=== PATIENT | male | born 1940 | race Caucasian/White ===

== ENCOUNTER 2022-05-02 14:55 | Inpatient (IN) | payer MEDICARE, SELFPAY ==
--- NOTE | ~2022-05-02 | CT_ITS ---
EXAMINATION: CT UE RT w con DATE: 05/03/2022 13:10 INDICATION: Right upper limb cat bite. TECHNIQUE: Computed tomography (CT) of the right upper limb was performed with 100 mL Omnipaque 350 i ntravenous contrast. Automated exposure control and iterative reconstruction technique were employed. The dose-length product was 651.08 mGy-cm. COMPARISON: Right hand radiographs 05/02/2022 FINDINGS: Bone alignment is normal. No fracture. There is a subchondral cyst in distal radius. 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 There is severe osteoarthritis o f some of the distal interphalangeal joints. There is soft tissue swelling of the hand and forearm. T here is a partial tear of the extensor tendon to fifth digit in the dorsum of the hand and wrist with fluid in the tear. IMPRESSION: 1. Partial tear of the extensor tendon of the fifth digit in the dorsum of the hand and wrist with fl uid in the tear. 2. No drainable abscess. Reviewed, dictated and finalized at location A. NEERING DIRECTOR IMPRESSION: 1. Partial tear of the extensor tendon of the fifth digit in the dorsum of the hand and wrist with fluid in the tear. 2. No drainable abscess.
--- NOTE | ~2022-05-02 | XR_ITS ---
EXAMINATION: XR hand RT min 3V INDICATION: Right hand pain and swelling TECHNIQUE: Three views of the right hand are obtained. COMPARISON: None available FINDINGS: There is marked soft tissue soft tissue swelling of the hand. No fracture is identified. Th ere is moderate osteoarthritis of multiple interphalangeal joints and at the triscaphe joint. Calcifi ed atherosclerosis is noted. IMPRESSION: 1. Marked soft tissue swelling of the hand without acute osseous abnormality. Reviewed, dictated and finalized at location F. MAKING MACHINE SETTER
[2022-05-02 15:48] VITALS: BP 129/61; PULSE 61; RESP 18; TEMP 36.7; O2SAT 97
--- NOTE | 2022-05-02 19:36 | ED.ANIMALBIT ---
HPI - Animal Bite General Chief Complaint: Animal Bite <Radha Greco PA-C - Last Filed: 05/03/22 04:19> Stated Complaint: cat bite <Radha Greco PA-C - Last Filed: 05/03/22 04:19> Time Seen by Provider: 05/02/22 19:19 <Radha Greco PA-C - Last Filed: 05/03/22 04:19> History of Present Illness HPI narrative: 82-year-old male without known medical history reports for evaluation after his cat bit his right hand 4 days ago. He is complaining of swelling, erythema, pain to his right dorsal hand and wrist that extends up into his forearm. Patient reports 3 days ago he was seen by his primary care provider for evaluation of the cat bite, started on Augmentin. He states he is here today because he is worried the infection is not going away. He reports he has taken Augmentin twice a day every day since prescribed 4 days ago, no missed doses. He reports that the swelling has not improved, however the erythema was extending to his elbow and is now down to his forearm. He denies fever, body aches, chills, nausea, vomiting. He states that his tetanus was updated by his primary care provider 4 days ago. He states this was his cat and the cat is up-to-date on rabies vaccines. Patient reports he has not concerned for rabies. Pt is right handed. <Radha Greco PA-C - Last Filed: 05/03/22 04:19> Related Data Home Medications: Home Medications Medication Instructions Recorded Confirmed [place] 3 Fish Oil 950 mg BYMOUTH HS 05/02/22 05/02/22 allopurinol 100 mg tablet 100 mg PO BID 05/02/22 05/02/22 clopidogrel 75 mg tablet 75 mg PO DAILY 05/02/22 05/02/22 colchicine 0.6 mg tablet 0.6 mg PO DAILY 05/02/22 05/02/22 geriatric multivitamin-min 1 tablet BYMOUTH DAILY 05/02/22 05/02/22 losartan 25 mg tablet 25 mg PO DAILY 05/02/22 05/02/22 rosuvastatin 10 mg tablet 10 mg PO HS 05/02/22 05/02/22 vitamin B complex 1 tablet PO DAILY 05/02/22 05/02/22 Nifediac CC 30 mg PO BID 05/03/22 05/03/22 <Radha Greco PA-C - Last Filed: 05/03/22 04:19> Allergies/Adverse Reactions: Allergies Allergy/AdvReac Type Severity Reaction Status Date / Time No Known Allergies Allergy Verified 02/27/20 10:34 <Radha Greco PA-C - Last Filed: 05/03/22 04:19> Review of Systems Review of Systems: CONSTITUTIONAL: Denies fever, chills EYES: Denies visual changes, redness, or discharge. ENT: Denies rhinorrhea, congestion, sore throat, or otalgia. CARDIOVASCULAR: Denies chest pain, palpitations, or edema. RESPIRATORY: Denies cough or dyspnea. GASTROINTESTINAL: Denies abdominal pain, nausea, vomiting, or diarrhea. GENITOURINARY: Denies dysuria or hematuria. SKIN: See HPI MUSCULOSKELETAL: Denies back pain, joint pain, or myalgia. NEUROLOGIC: Denies headache, numbness, dizziness, or weakness. PSYCHIATRIC: Denies anxiety or depression. 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
[2022-05-02 20:23] LABS: Basophils Percent Auto 0.7 % (0.2-1.2); Eosinophils Absolute Auto 0.2 K/mm3 (0-0.3); Eosinophils Percent Auto 2.5 % (0-4.4); Hematocrit 44.8 % (42.0-52.0); Hemoglobin 14.7 g/dL (14.0-18.0); Immature Granulocyte Absolute 0.01 K/mm3 (0.00-0.031); Immature Granulocyte Percent A 0.2 % (0-0.5); Lymphocytes Absolute Auto 1.56 K/mm3 (0.9-3.2); Mean Corpuscular HGB Conc 32.8 g/dl (32-36); Mean Corpuscular Hemoglobin 31.1 pg (26-34); Mean Corpuscular Volume 94.9 fl (80-100); Mean Platelet Volume 9.4 fl (7.4-10.4); Monocytes Absolute Auto 0.8 K/mm3 (0.1-0.6); Monocytes Percent Auto 12.8 % (2.6-8.5); Neutrophils Absolute Auto 3.5 K/mm3 (1.3-6.7); Neutrophils Percent Auto 57.8 % (45.5-73.1); Platelet Count Result 241 k/mm3 (150-375); Red Blood Count 4.72 M/mm3 (4.6-6.20); Red Cell Distribution Width 12.9 % (11.5-14.5)
[2022-05-02 20:36] LABS: Alanine Aminotransferase 23 U/L (6-50); Albumin Level 4.6 g/dL (3.5-5.1); Alkaline Phosphatase 72 U/L (38-126); Anion Gap 7 mmol/L (8-16); Aspartate Amino Transferase 27 U/L (17-59); Bilirubin,Total 0.5 mg/dL (0.2-1.3); Blood Urea Nitrogen 19 mg/dL (9-20); CRP 4.7 mg/dL (<1.0); Calcium 9.3 mg/dL (8.4-10.2); Carbon Dioxide 28 mmol/L (22-30); Chloride 104 mmol/L (98-107); Estimated Glomerular Filt Rate > 60; Glucose 96 mg/dL (65-110); Potassium 4.1 mmol/L (3.4-5.0); Sodium 139 mmol/L (137-145)
[2022-05-02] MEDS: AMPICILLIN SULB 3 GM/NS 100 ML 3 GM/100 ML VIAL IVPB (20:37)
[2022-05-02 21:26] VITALS: BP 168/54; PULSE 62; RESP 20; TEMP 36.8; O2SAT 100
[2022-05-02 21:46] LABS: Erythrocyte Sedimentation Rate 27 mm/hr (0-20)
--- NOTE | 2022-05-02 22:25 | ADMGEN ---
This patient, Candelario Snider Jr., was admitted to Medical Room 247-. Patient/family oriented to hospital policies and general routines including ID bracelet, bed and alarms, visiting hours, pain management, procedures, bathroom and other care routines, personal items, smoking policy, room service/diet, and visiting hours. Information on how to activate the Rapid Response Team has been discussed. Patient/Family are encouraged to report perceived risks to care and to ask questions if they do not understand what they are told or what they should do.
[2022-05-02 22:33] VITALS: PULSE 62; RESP 20; O2SAT 100
[2022-05-02 22:53] LABS: Basophils Absolute Auto 0.1 K/mm3 (0.0-0.1); Basophils Percent Auto 0.9 % (0.2-1.2); Eosinophils Absolute Auto 0.2 K/mm3 (0-0.3); Eosinophils Percent Auto 2.8 % (0-4.4); Hematocrit 43.3 % (42.0-52.0); Hemoglobin 14.2 g/dL (14.0-18.0); Immature Granulocyte Absolute 0.02 K/mm3 (0.00-0.031); Immature Granulocyte Percent A 0.4 % (0-0.5); Lymphocytes Absolute Auto 1.59 K/mm3 (0.9-3.2); Lymphocytes Percent Auto 27.9 % (18.3-44.2); Mean Corpuscular HGB Conc 32.8 g/dl (32-36); Mean Corpuscular Hemoglobin 31.3 pg (26-34); Mean Corpuscular Volume 95.4 fl (80-100); Mean Platelet Volume 9.4 fl (7.4-10.4); Monocytes Absolute Auto 0.7 K/mm3 (0.1-0.6); Monocytes Percent Auto 11.9 % (2.6-8.5); Neutrophils Absolute Auto 3.2 K/mm3 (1.3-6.7); Neutrophils Percent Auto 56.1 % (45.5-73.1); Platelet Count Result 232 k/mm3 (150-375); Red Blood Count 4.54 M/mm3 (4.6-6.20); White Blood Count 5.7 K/mm3 (4.5-10.0)
[2022-05-02 23:05] VITALS: BP 170/64; PULSE 61; RESP 18; TEMP 36.6; O2SAT 98; BMI 28.6
--- NOTE | 2022-05-03 00:44 | PM.IMHP ---
H&P: [facility] History of Present Illness Date/Time: 05/03/22 00:44 Chief Complaint: Cellulitis from cat bite Narrative: 82-year-old male with past medical history of essential hypertension, gout and coronary artery disease/peripheral artery disease who presented to the ER via private vehicle due to worsening cellulitis from a cat bite. The patient was bit on the by his cat that is just over a year old. He told me that he was trying to restrain the cat so that she quit being naughty. She bit him twice. The following day 04/28/2022 got a prescription for Augmentin. He has taken his medications as directed twice a day without missing any antibiotic doses. Despite this he has had increased swelling redness and warmth to his right hand with erythema now starting to spread up his forearm. He has been afebrile. He reports that any time he stands up suddenly he will developed more throbbing pain in his hand. The hand has been edematous since the day after he received the bite. He started having increasing erythema 2 or 3 days later. The erythema was starting to go up his forearm. He reports that his hand was so swollen that he could not make fist. He reports the pain for the most part is a 2-3/10 in intensity. It is also worse if he lets hand hanging has been trying to keep his hand elevated. He reports that the hand is been weak due to the swelling. He was trying to he states that he cannot straighten his fingers out and states that the pain is worse when he tries to straighten his fingers out. Especially the 3rd through 5th fingers. He reports that he had been soaking his hand daily and warm water and Epsom salts. After about 3 days of doing this he did note that the wound on his ulnar side of his wrist did open up but was not really draining anything. He denies any nausea or vomiting. He has not had any changes in appetite. He does have a history of coronary artery disease but denies any recent chest pain shortness but or palpitations. 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 He denies any sensation of incomplete bladder emptying. Review of Systems Review of Systems: 12 systems were reviewed with pertinent positives and negatives per HPI. Except as documented in the HPI, all other systems were reviewed and are negative. 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 He lives at home with his and is independent in activities of daily living. 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 He has 2 sons and 1 daughter who are all healthy. He used to drink alcohol on occasion but has not done so in many years. Code status: Full code (patient states he would not want to be on a ventilator long-term or to have a tracheostomy or feeding tube.) Surrogate decision maker: Smoking status: Never smoker Second hand tobacco smoke exposure: Yes (at work) Alcohol intake: former Alcohol use details: On occasion in in moderation. Substance use: never Substance use type: does not use Lack
[2022-05-03 04:00] VITALS: BP 150/54; PULSE 56; RESP 18; TEMP 36.7; O2SAT 97
[2022-05-03] MEDS: AMPICILLIN SULB 3 GM/NS 100 ML 3 GM/100 ML VIAL IVPB ×4 (04:10→20:22)
[2022-05-03 05:18] LABS: Hematocrit 41.1 % (42.0-52.0); Hemoglobin 13.7 g/dL (14.0-18.0); Mean Corpuscular HGB Conc 33.3 g/dl (32-36); Mean Corpuscular Hemoglobin 31.7 pg (26-34); Mean Corpuscular Volume 95.1 fl (80-100); Mean Platelet Volume 9.6 fl (7.4-10.4); Platelet Count Result 224 k/mm3 (150-375); Red Blood Count 4.32 M/mm3 (4.6-6.20); Red Cell Distribution Width 12.7 % (11.5-14.5)
[2022-05-03 08:00] VITALS: BP 161/57; PULSE 57; RESP 16; TEMP 36.6; O2SAT 96
[2022-05-03] MEDS: LOSARTAN POTASSIUM 25 MG TABLET PO (08:23)
[2022-05-03] MEDS: COLCHICINE 0.6 MG TABLET PO (08:23)
[2022-05-03] MEDS: NIFEdipine 30 MG TAB.ER.24 PO ×2 (08:23→17:01)
[2022-05-03] MEDS: allopurinoL 100 MG TABLET PO ×2 (08:23→17:01)
[2022-05-03] MEDS: CLOPIDOGREL BISULFATE 75 MG TABLET PO (08:24)
[2022-05-03] MEDS: VITAMIN B COMPLEX CAPSULE 1 CAP PO (08:24)
[2022-05-03] MEDS: ENOXAPARIN 40 MG/0.4 ML SYRINGE SUB-Q (08:24)
--- NOTE | 2022-05-03 11:56 | PM.IMPN ---
Progress Note: A&P Assessment and Plan (1) Cat bite: Qualifiers: Encounter type: sequela Qualified Code(s): W55.01XS - Bitten by cat, sequela Code(s): W55.01XA - Bitten by cat, initial encounter Status: Acute (2) Cellulitis: Qualifiers: Laterality: right Site of cellulitis: extremity Site of cellulitis of extremity: upper extremity Qualified Code(s): L03.113 - Cellulitis of right upper limb Code(s): L03.90 - Cellulitis, unspecified Status: Acute (3) Essential hypertension: Code(s): I10 - Essential (primary) hypertension Status: Acute Plan The patient is cellulitis associated with a cap bite that has failed conservative/outpatient antibiotic therapy. The patient has been admitted to the hospital for IV antibiotics. ER provider stated the patient's wrist and hand erythema has already improved after 1 dose of Unasyn. The patient does have marked edema to the hand with associated decreased range of motion. Given the location of the wound and decreased range of motion IM concern for possible underlying infection possible underlying tenosynovitis. Subsequently a will order CT of the right upper extremity from mid forearm through to the finger tips to rule out any underlying infection or abscess. Blood cultures have been obtained and are pending. Will repeat CBC with a.m. labs. The patient has known essential hypertension. It is unclear whether not patient received his evening antihypertensives. His blood pressures have been elevated to the 160-170 systolic since arrival to the medical floor. Will monitor blood pressures more closely with Q 4 hour vitals. Nursing staff is checking if the patient got his evening dose of meds and which formulation of nifedipine that he uses. If hypertension persists will add additional antihypertensives in the form of hydralazine 10 mg q.4 hours. Given the patient's history coronary artery disease I would like the patient's blood pressures to be optimized. Patient has been admitted as observation status. 05/03/2022 interval history: patient 82-year-old male with right hand cat bite developed cellulitis with edema and difficulty with a range of motion with his hand and wrist, patient was seen by his primary care it started the patient on Augmentin however redness and swelling was not improving and patient came to emergency department for further evaluation, patient was started on Unasyn, patient states the redness swelling as well as range of motion has improved, will continue the IV antibiotics for 72 hours reassess the patient and discharge Subjective Date/time seen: 05/03/22 11:56 Cellulitis from cat bite HPI-Narrative: 82-year-old male with past medical history of essential hypertension, gout and coronary artery disease/peripheral artery disease who presented to the ER via private vehicle due to worsening cellulitis from a cat bite.? The patient was bit on the by his cat that is just over a year old.? He told me that he was trying to restrain the cat so that she quit being naughty.? She bit him twice.? The following day 04/28/2022 got a prescription for Augmentin.? He has taken his medications as directed twice a day without missing any antibiotic doses.? Despite this he has had increased swelling redness and warmth to his right hand with erythema now starting to spread up his forearm.? He has been afebrile.? He reports that any time he stands up suddenly he will developed more throbbing pain in his hand.? The hand has been edematous since the day after he received the bite.? He started having increasing erythema 2 or 3 days later.? The erythema was starting to go up his forearm.? He reports that his hand was so swollen that he could not make fist.? He reports the pain for the most part is a 2-3/10 in intensity.? It is also worse if he lets hand hanging has been trying to keep his hand elevated.? He reports that the hand is been weak due to t
[2022-05-03 12:00] VITALS: BP 169/58; PULSE 57; RESP 18; TEMP 36.8; O2SAT 98
[2022-05-03] MEDS: MULTIVITAMINS /C LUTEIN (CENTRUM SILVER) TABLET *BKC 1 TAB BY MOUTH (15:34)
[2022-05-03 20:00] VITALS: BP 168/59; PULSE 61; RESP 18; TEMP 36.4; O2SAT 97
[2022-05-03] MEDS: OMEGA 3 POLYUNSAT FATTY ACIDS 1 GM CAP PO (20:22)
[2022-05-03] MEDS: ROSUVASTATIN 10 MG TABLET PO (20:22)
[2022-05-04] MEDS: AMPICILLIN SULB 3 GM/NS 100 ML 3 GM/100 ML VIAL IVPB ×4 (03:20→20:18)
[2022-05-04 04:00] VITALS: BP 148/65; PULSE 55; RESP 18; TEMP 36.6; O2SAT 95
[2022-05-04 05:16] LABS: Hematocrit 41.4 % (42.0-52.0); Hemoglobin 13.9 g/dL (14.0-18.0); Mean Corpuscular HGB Conc 33.6 g/dl (32-36); Mean Corpuscular Hemoglobin 31.6 pg (26-34); Mean Corpuscular Volume 94.1 fl (80-100); Mean Platelet Volume 9.4 fl (7.4-10.4); Platelet Count Result 228 k/mm3 (150-375); Red Cell Distribution Width 12.6 % (11.5-14.5); White Blood Count 5.9 K/mm3 (4.5-10.0)
[2022-05-04 05:28] LABS: Anion Gap 6 mmol/L (8-16); Blood Urea Nitrogen 18 mg/dL (9-20); Carbon Dioxide 29 mmol/L (22-30); Chloride 102 mmol/L (98-107); Estimated CRCL calculation 45 ml/min; Estimated Glomerular Filt Rate > 60; Glucose 91 mg/dL (65-110); Magnesium 2.1 mg/dL (1.6-2.3); Potassium 3.6 mmol/L (3.4-5.0); Sodium 137 mmol/L (137-145)
[2022-05-04 08:00] VITALS: BP 147/65; PULSE 63; RESP 16; TEMP 36.6; O2SAT 97
[2022-05-04] MEDS: ENOXAPARIN 40 MG/0.4 ML SYRINGE SUB-Q (09:03)
[2022-05-04] MEDS: allopurinoL 100 MG TABLET PO ×2 (09:03→16:39)
[2022-05-04] MEDS: NIFEdipine 30 MG TAB.ER.24 PO ×2 (09:03→16:39)
[2022-05-04] MEDS: CLOPIDOGREL BISULFATE 75 MG TABLET PO (09:03)
[2022-05-04] MEDS: LOSARTAN POTASSIUM 25 MG TABLET PO (09:03)
[2022-05-04] MEDS: VITAMIN B COMPLEX CAPSULE 1 CAP PO (09:03)
[2022-05-04] MEDS: COLCHICINE 0.6 MG TABLET PO (09:03)
[2022-05-04] MEDS: MULTIVITAMINS /C LUTEIN (CENTRUM SILVER) TABLET *BKC 1 TAB BY MOUTH (09:03)
[2022-05-04 09:31] VITALS: O2SAT 96
--- NOTE | 2022-05-04 11:28 | PM.IMPN ---
Progress Note: A&P Assessment and Plan (1) Cat bite: Qualifiers: Encounter type: sequela Qualified Code(s): W55.01XS - Bitten by cat, sequela Code(s): W55.01XA - Bitten by cat, initial encounter Status: Acute (2) Cellulitis: Qualifiers: Laterality: right Site of cellulitis: extremity Site of cellulitis of extremity: upper extremity Qualified Code(s): L03.113 - Cellulitis of right upper limb Code(s): L03.90 - Cellulitis, unspecified Status: Acute (3) Essential hypertension: Code(s): I10 - Essential (primary) hypertension Status: Acute Plan The patient is cellulitis associated with a cap bite that has failed conservative/outpatient antibiotic therapy. The patient has been admitted to the hospital for IV antibiotics. ER provider stated the patient's wrist and hand erythema has already improved after 1 dose of Unasyn. The patient does have marked edema to the hand with associated decreased range of motion. Given the location of the wound and decreased range of motion IM concern for possible underlying infection possible underlying tenosynovitis. Subsequently a will order CT of the right upper extremity from mid forearm through to the finger tips to rule out any underlying infection or abscess. Blood cultures have been obtained and are pending. Will repeat CBC with a.m. labs. The patient has known essential hypertension. It is unclear whether not patient received his evening antihypertensives. His blood pressures have been elevated to the 160-170 systolic since arrival to the medical floor. Will monitor blood pressures more closely with Q 4 hour vitals. Nursing staff is checking if the patient got his evening dose of meds and which formulation of nifedipine that he uses. If hypertension persists will add additional antihypertensives in the form of hydralazine 10 mg q.4 hours. Given the patient's history coronary artery disease I would like the patient's blood pressures to be optimized. Patient has been admitted as observation status. 05/04/2022 interval history: patient 82-year-old male with right hand cat bite developed cellulitis with edema and difficulty with a range of motion with his RT hand and wrist, patient was seen by his primary care was started the patient on Augmentin however redness and swelling was not improving and patient came to emergency department for further evaluation, patient was started on Unasyn, patient states the redness swelling as well as range of motion has improved, will continue the IV antibiotics for 72 hours reassess the patient tomorrow, and follow up blood culture, if stable, will discharge patient tomoorw, Subjective Date/time seen: 05/04/22 11:28 The patient is cellulitis associated with a cap bite that has failed conservative/outpatient antibiotic therapy. The patient has been admitted to the hospital for IV antibiotics. ER provider stated the patient's wrist and hand erythema has already improved after 1 dose of Unasyn. The patient does have marked edema to the hand with associated decreased range of motion. Given the location of the wound and decreased range of motion IM concern for possible underlying infection possible underlying tenosynovitis. Subsequently a will order CT of the right upper extremity from mid forearm through to the finger tips to rule out any underlying infection or abscess. Blood cultures have been obtained and are pending. Will repeat CBC with a.m. labs. The patient has known essential hypertension. It is unclear whether not patient received his evening antihypertensives. His blood pressures have been elevated to the 160-170 systolic since arrival to the medical floor. Will monitor blood pressures more closely with Q 4 hour vitals. Nursing staff is checking if the patient got his evening dose of meds and which formulation of nifedipine that he uses. If hypertension persists will add additional antihypert
[2022-05-04 11:45] VITALS: BP 141/59; PULSE 58; RESP 20; TEMP 36.4; O2SAT 96
[2022-05-04 15:40] VITALS: BP 143/52; PULSE 57; RESP 18; TEMP 36.8; O2SAT 95
[2022-05-04 20:00] VITALS: BP 151/57; PULSE 57; PULSE 60; RESP 16; RESP 18; TEMP 36.9; O2SAT 94; O2SAT 95
[2022-05-04] MEDS: ROSUVASTATIN 10 MG TABLET PO (20:18)
[2022-05-04] MEDS: OMEGA 3 POLYUNSAT FATTY ACIDS 1 GM CAP PO (20:18)
[2022-05-05 00:22] VITALS: BP 144/56; PULSE 61; RESP 18; TEMP 37.1; O2SAT 95
[2022-05-05] MEDS: AMPICILLIN SULB 3 GM/NS 100 ML 3 GM/100 ML VIAL IVPB ×2 (02:43→08:08)
[2022-05-05 04:35] VITALS: BP 144/54; PULSE 61; RESP 18; TEMP 36.9; O2SAT 95
[2022-05-05 05:21] LABS: Hematocrit 39.7 % (42.0-52.0); Hemoglobin 13.2 g/dL (14.0-18.0); Mean Corpuscular HGB Conc 33.2 g/dl (32-36); Mean Corpuscular Hemoglobin 30.7 pg (26-34); Mean Corpuscular Volume 92.3 fl (80-100); Mean Platelet Volume 9.2 fl (7.4-10.4); Platelet Count Result 225 k/mm3 (150-375); Red Cell Distribution Width 12.5 % (11.5-14.5); White Blood Count 5.4 K/mm3 (4.5-10.0)
[2022-05-05 05:34] LABS: Anion Gap 6 mmol/L (8-16); Blood Urea Nitrogen 18 mg/dL (9-20); Calcium 8.8 mg/dL (8.4-10.2); Carbon Dioxide 27 mmol/L (22-30); Chloride 103 mmol/L (98-107); Estimated CRCL calculation 42 ml/min; Estimated Glomerular Filt Rate > 60; Glucose 85 mg/dL (65-110); Magnesium 2.1 mg/dL (1.6-2.3); Potassium 3.8 mmol/L (3.4-5.0); Sodium 136 mmol/L (137-145)
[2022-05-05] MEDS: NIFEdipine 30 MG TAB.ER.24 PO (08:02)
[2022-05-05] MEDS: VITAMIN B COMPLEX CAPSULE 1 CAP PO (08:02)
[2022-05-05] MEDS: CLOPIDOGREL BISULFATE 75 MG TABLET PO (08:03)
[2022-05-05] MEDS: ENOXAPARIN 40 MG/0.4 ML SYRINGE SUB-Q (08:03)
[2022-05-05] MEDS: COLCHICINE 0.6 MG TABLET PO (08:03)
[2022-05-05] MEDS: LOSARTAN POTASSIUM 25 MG TABLET PO (08:03)
[2022-05-05] MEDS: MULTIVITAMINS /C LUTEIN (CENTRUM SILVER) TABLET *BKC 1 TAB BY MOUTH (08:03)
[2022-05-05] MEDS: allopurinoL 100 MG TABLET PO (08:03)
--- NOTE | 2022-05-05 10:21 | PM.DS ---
DS: Admitting Diagnosis Discharge Date 05/05/2022 Admitting Diagnosis Cellulitis from cat bite DS: Discharge Diagnosis Discharge Diagnosis (1) Cat bite: Qualifiers: Encounter type: sequela Qualified Code(s): W55.01XS - Bitten by cat, sequela Code(s): W55.01XA - Bitten by cat, initial encounter Status: Acute (2) Cellulitis: Qualifiers: Laterality: right Site of cellulitis: extremity Site of cellulitis of extremity: upper extremity Qualified Code(s): L03.113 - Cellulitis of right upper limb Code(s): L03.90 - Cellulitis, unspecified Status: Acute (3) Essential hypertension: Code(s): I10 - Essential (primary) hypertension Status: Acute Plan The patient is cellulitis associated with a cap bite that has failed conservative/outpatient antibiotic therapy. The patient has been admitted to the hospital for IV antibiotics. ER provider stated the patient's wrist and hand erythema has already improved after 1 dose of Unasyn. The patient does have marked edema to the hand with associated decreased range of motion. Given the location of the wound and decreased range of motion IM concern for possible underlying infection possible underlying tenosynovitis. Subsequently a will order CT of the right upper extremity from mid forearm through to the finger tips to rule out any underlying infection or abscess. Blood cultures have been obtained and are pending. Will repeat CBC with a.m. labs. The patient has known essential hypertension. It is unclear whether not patient received his evening antihypertensives. His blood pressures have been elevated to the 160-170 systolic since arrival to the medical floor. Will monitor blood pressures more closely with Q 4 hour vitals. Nursing staff is checking if the patient got his evening dose of meds and which formulation of nifedipine that he uses. If hypertension persists will add additional antihypertensives in the form of hydralazine 10 mg q.4 hours. Given the patient's history coronary artery disease I would like the patient's blood pressures to be optimized. Patient has been admitted as observation status. 05/04/2022 interval history: patient 82-year-old male with right hand cat bite developed cellulitis with edema and difficulty with a range of motion with his RT hand and wrist, patient was seen by his primary care was started the patient on Augmentin however redness and swelling was not improving and patient came to emergency department for further evaluation, patient was started on Unasyn, patient states the redness swelling as well as range of motion has improved, will continue the IV antibiotics for 72 hours reassess the patient tomorrow, and follow up blood culture, if stable, will discharge patient TEA slade: Summary Hospital Course Reason for hospitalization: Cellulitis from cat bite Narrative: 82-year-old male with past medical history of essential hypertension, gout and coronary artery disease/peripheral artery disease who presented to the ER via private vehicle due to worsening cellulitis from a cat bite.? The patient was bit on the by his cat that is just over a year old.? He told me that he was trying to restrain the cat so that she quit being naughty.? She bit him twice.? The following day 04/28/2022 got a prescription for Augmentin.? He has taken his medications as directed twice a day without missing any antibiotic doses.? Despite this he has had increased swelling redness and warmth to his right hand with erythema now starting to spread up his forearm.? He has been afebrile.? He reports that any time he stands up suddenly he will developed more throbbing pain in his hand.? The hand has been edematous since the day after he received the bite.? He started having increasing erythema 2 or 3 days later.? The erythema was starting to go up his forearm.? He reports that his hand was so swollen that he could not make fist.? He repor
[2022-05-05 10:44] VITALS: BP 128/51; PULSE 64; RESP 18; TEMP 36.2; O2SAT 97
== END 2022-05-05 12:10 | disposition home or self-care (01) | DRG 603 ==
LOC: ANHED 21:46 → ANH2MED 22:08
PROVIDERS: Admitting Provider Internal Medicine; Emergency Provider Physician Assistant; PCP Internal Medicine; Visit Provider Family Medicine
DX: L03.113 Cellulitis of right upper limb (principal); I10 Essential (primary) hypertension; W55.01XA Bitten by cat, initial encounter
CPT/HCPCS: 36415; 73130; 73201; 80048; 80053; 83735; 85025; 85027; 85652; 86140; 87040; 96365; 96366; 96372; 99285; A9270; G0378; J0295; J1650; Q9967

== ENCOUNTER 2022-08-23 06:04 | Emergency (ER) | payer MEDICARE, SELFPAY ==
[2022-08-23 06:09] VITALS: BP 144/46; PULSE 73; RESP 18; TEMP 36.5; O2SAT 95
--- NOTE | 2022-08-23 06:54 | ED.GENADULT ---
HPI - General Adult General Chief complaint: Urogenital-Male <Dao Cooper MD - Last Filed: 08/23/22 07:05> Stated complaint: Urinary retention <Dao Cooper MD - Last Filed: 08/23/22 07:05> Time Seen by Provider: 08/23/22 06:15 <Dao Cooper MD - Last Filed: 08/23/22 07:05> History of Present Illness HPI narrative: 82-year-old male presented the emergency department for evaluation of urinary urgency. Patient does have history of urinary stricture and has seen urology before, Dr Goldberg. Patient states he has not been dilated in approximately 2 years. Patient reports over the last 2 days he has had increased urinary urgency. Patient denies any pain with urination. <Dao Cooper MD - Last Filed: 08/23/22 07:05> Related Data Home medications: Home Medications Medication Instructions Recorded Confirmed [place] 3 Fish Oil 950 mg BYMOUTH HS 05/02/22 05/02/22 allopurinol 100 mg tablet 100 mg PO BID 05/02/22 05/02/22 clopidogrel 75 mg tablet 75 mg PO DAILY 05/02/22 05/02/22 colchicine 0.6 mg tablet 0.6 mg PO DAILY 05/02/22 05/02/22 geriatric multivitamin-min 1 tablet BYMOUTH DAILY 05/02/22 05/02/22 losartan 25 mg tablet 25 mg PO DAILY 05/02/22 05/02/22 rosuvastatin 10 mg tablet 10 mg PO HS 05/02/22 05/02/22 vitamin B complex 1 tablet PO DAILY 05/02/22 05/02/22 Nifediac CC 30 mg PO BID 05/03/22 05/03/22 <Dao Cooper MD - Last Filed: 08/23/22 07:05> Allergies/adverse reactions: Allergies Allergy/AdvReac Type Severity Reaction Status Date / Time No Known Allergies Allergy Verified 08/23/22 06:22 <Dao Cooper MD - Last Filed: 08/23/22 07:05> Review of Systems Review of Systems: All systems reviewed & are unremarkable except as noted in HPI and below <Dao Cooper MD - Last Filed: 08/23/22 07:05> [facility] Past Medical History Medical History: Medical History (Updated 08/23/22 @ 08:44 by Otoniel Keller MD) 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 Coronary artery disease Essential hypertension Gout Hyperlipidemia Peripheral artery disease 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 <Dao Cooper MD - Last Filed: 08/23/22 07:05> Surgical History Surgical History: Surgical History (Updated 05/03/22 @ 03:51 by Edilia Huizar DO) History of bilateral knee replacement History of heart artery stent X4 History of right cataract surgery History of right common carotid artery stent placement <Dao Cooper MD - Last Filed: 08/23/22 07:05> Family History Family History: Family History Other Family history of cardiovascular disease <Dao Cooper MD - Last Filed: 08/23/22 07:05> Social History Social History: Social History (Updated 05/03/22 @ 03:53 by Edilia Huizar DO) Social History: Patient has been for 54 years. He lives at home with his and is independent in activities of daily living. 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 He has 2 sons and 1 daughter who are all healthy. He used to drink alcohol on occasion but has not done so in many years. Code status: Full code (patient states he would not want to be on a ventilator long-term or to have a tracheostomy or feeding tube.) Surrogate decision maker: Smoking status: Never smoker Second hand tobacco smoke exposure: Yes (at work) Alcohol intake: former Alcohol use details: On occasion in in moderation. Substance use: never Substance use type: does not use Lack of Transportation: No Lack of Food: Never True Current Housing: I Have Housing Concerned About Future Housing: No Difficulty Paying Gas/Electric Bills: No Difficulty Paying for Meds: No Currently Unemployed: No Education: High
[2022-08-23 08:09] LABS: Basophils Percent Auto 0.3 % (0.2-1.2); Eosinophils Percent Auto 0.1 % (0-4.4); Hematocrit 40.2 % (42.0-52.0); Hemoglobin 13.3 g/dL (14.0-18.0); Immature Granulocyte Absolute 0.07 K/mm3 (0.00-0.031); Immature Granulocyte Percent A 0.5 % (0-0.5); Lymphocytes Absolute Auto 1.37 K/mm3 (0.9-3.2); Lymphocytes Percent Auto 10.1 % (18.3-44.2); Mean Corpuscular HGB Conc 33.1 g/dl (32-36); Mean Corpuscular Hemoglobin 30.9 pg (26-34); Mean Corpuscular Volume 93.3 fl (80-100); Mean Platelet Volume 9.6 fl (7.4-10.4); Monocytes Absolute Auto 1.3 K/mm3 (0.1-0.6); Monocytes Percent Auto 9.5 % (2.6-8.5); Neutrophils Absolute Auto 10.8 K/mm3 (1.3-6.7); Neutrophils Percent Auto 79.5 % (45.5-73.1); Platelet Count Result 221 k/mm3 (150-375); Red Blood Count 4.31 M/mm3 (4.6-6.20); Red Cell Distribution Width 13.1 % (11.5-14.5); White Blood Count 13.6 K/mm3 (4.5-10.0)
[2022-08-23 08:15] LABS: Alanine Aminotransferase 22 U/L (6-50); Albumin Level 3.8 g/dL (3.5-5.1); Alkaline Phosphatase 60 U/L (38-126); Anion Gap 6 mmol/L (8-16); Aspartate Amino Transferase 30 U/L (17-59); Bilirubin,Total 0.6 mg/dL (0.2-1.3); Blood Urea Nitrogen 18 mg/dL (9-20); Calcium 9.1 mg/dL (8.4-10.2); Carbon Dioxide 27 mmol/L (22-30); Chloride 103 mmol/L (98-107); Estimated CRCL calculation 45 ml/min; Estimated Glomerular Filt Rate > 60; Glucose 108 mg/dL (65-110); Sodium 136 mmol/L (137-145)
[2022-08-23 08:19] LABS: Appearance Urine Clear (Clear); Bacteria Urine None Seen /hpf; Bilirubin Urine Negative (Negative); Blood Urine Negative (Negative); Color Urine Dark Yellow (Yellow); Glucose Urine UA Negative (Negative); Ketones Urine Trace mg/dL (Negative); Leukocyte Esterase Ur Negative LEU/UL (Negative); Nitrate Urine Negative (Negative); Non Pathogenic Casts 0-2; Protein Urine 1+ mg/dL (Negative); RBC Urine 0-2 /hpf (0-2); Specific Grav Ur 1.022 (1.001-1.035); Squamous Epithelial Cell Urine None seen /hpf (Few); WBC Urine 0-5 /hpf; pH Urine 5.5 (5.0-9.0)
[2022-08-23 08:20] LABS: Add Urine Microscopic? YES
[2022-08-23 09:06] VITALS: BP 136/82; PULSE 72; RESP 18; O2SAT 100
== END 2022-08-23 09:07 | disposition home or self-care (01) ==
PROVIDERS: Emergency Medicine; Emergency Provider Preventive Medicine Aerospace Medicine; PCP Internal Medicine
DX: R39.15 Urgency of urination (principal); R30.0 Dysuria; I25.10 Atherosclerotic heart disease of native coronary artery without angina pectoris; I10 Essential (primary) hypertension; E78.5 Hyperlipidemia, unspecified; M10.9 Gout, unspecified; I73.9 Peripheral vascular disease, unspecified; Z96.653 Presence of artificial knee joint, bilateral; Z95.5 Presence of coronary angioplasty implant and graft; Z85.828 Personal history of other malignant neoplasm of skin; Z98.41 Cataract extraction status, right eye; Z77.22 Contact with and (suspected) exposure to environmental tobacco smoke (acute) (chronic)
CPT/HCPCS: 36415; 80053; 81001; 85025; 99283

== ENCOUNTER 2022-09-04 03:03 | Day surgery (SDC) | payer MEDICARE, SELFPAY ==
--- NOTE | 2022-08-29 12:14 | PM.HPGS ---
History of Present Illness History of Present Illness Consent: Risks, benefits, and alternatives have been discussed and questions answered. Patient agrees to proceed with procedure. Chief complaint: gross hematuria Narrative: Candelario Snider Jr. is a 82 year old male was had a couple episodes of transient scan gross hematuria. Attempted cystoscopy recent but was unable because of urethral stricture presents today for cystoscopy with urethral dilatation it is aware the risk including, not limited to, adverse cardiopulmonary events, urethral injury needing short-term catheterization, recurrent stricture. 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 He lives at home with his and is independent in activities of daily living. 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 He has 2 sons and 1 daughter who are all healthy. He used to drink alcohol on occasion but has not done so in many years. Code status: Full code (patient states he would not want to be on a ventilator long-term or to have a tracheostomy or feeding tube.) Surrogate decision maker: Smoking status: Never smoker Second hand tobacco smoke exposure: Yes (at work) Alcohol intake: former Alcohol use details: On occasion in in moderation. Substance use: never Substance use type: does not use Lack of Transportation: No Lack of Food: Never True Current Housing: I Have Housing Concerned About Future Housing: No Difficulty Paying Gas/Electric Bills: No Difficulty Paying for Meds: No Currently Unemployed: No Education: High School Diploma/GED Difficulty w/ Childcare or Family Care: No Spiritual care concerns: No Meds Home Medications and Allergies Home Medications Medication Instructions Recorded Confirmed Type [place] 3 Fish Oil 950 mg BYMOUTH HS 05/02/22 05/02/22 History allopurinol 100 mg tablet 100 mg PO BID 05/02/22 05/02/22 History clopidogrel 75 mg tablet 75 mg PO DAILY 05/02/22 05/02/22 History colchicine 0.6 mg tablet 0.6 mg PO DAILY 05/02/22 05/02/22 History geriatric multivitamin-min 1 tablet BYMOUTH DAILY 05/02/22 05/02/22 History losartan 25 mg tablet 25 mg PO DAILY 05/02/22 05/02/22 History rosuvastatin 10 mg tablet 10 mg PO HS 05/02/22 05/02/22 History vitamin B complex 1 tablet PO DAILY 05/02/22 05/02/22 History Nifediac CC 30 mg PO BID 05/03/22 05/03/22 History nifedipine 30 mg tablet,extended 30 mg PO BID #30 tabs 05/05/22 Rx release 24 hr (Procardia XL) Allergies Allergy/AdvReac Type Severity Reaction Status Date / Time No Known Allergies Allergy Verified 08/23/22 06:22 Exam Const: General: no acute distress Resp: Effort & Inspection: normal respiratory effort GI: Inspection: non-distended GI Palp: No abdominal tenderness and No Guarding due to palpation present (GI) Auscultation: normal bowel sounds Assessment and Plan Assessment and plan (1) Bulbous urethral stricture:
--- NOTE | 2022-08-29 13:29 | PC.NURSE ---
Report to the Outpatient Waiting Room, entrance under the green pavilion located off [facility], at time ___30____ on date __09/04/22 . Planned Procedure Time: _1030 . Time changes happen often and if your time is changed the preop area will call you the afternoon before. - You and your visitor will be asked to self-screen and do not enter if you have any COVID symptoms. - A mask is optional within the hospital at this time. Patients may have clear liquids (water, carbonated beverages, clear teas, apple juice) until 3 hours prior to surgery with a maximum of 20 ounces. - No food from midnight until time of surgery - Infants may have breast milk until 4 hours before surgery, formula 6 hours prior to surgery. - Children will be allowed to drink immediately following surgery. If applicable, please bring a bottle or sippy cup to assist with drinking. Juice, water, soda, and popsicles are readily available. For infants on formula, please bring formula the day of surgery. Pacifiers are allowed. Take the following medications with a SIP of water the morning of surgery: ___PROCARDIA DO NOT STOP ANY OF YOUR OTHER PRESCRIPTION MEDICATIONS PRIOR TO SURGERY ?EXCEPT THE FOLLOWING Medications to discontinue per physician ____PER PT'S -DO NOT HOLD ASPIRIN OR PLAVIX PER DR MCCLOUD. ALL VITAMINS/SUPPLEMENTS 3 DAYS PRE OP .LAST DOSE 08/31/22 Please no make-up, nail setswana, hairspray, perfume, deodorant, or body powder the day of surgery. No jewelry (including any body piercings) or valuables the day of surgery, leave them at home. Please take a shower or bath the night before, or the morning of, surgery with an antibacterial soap. Wear comfortable, loose fitting clothing. Children are encouraged to wear pajamas. - Jewelry must be removed prior to entering the operating room. Rings and piercings that are not removed may be cut off. - The hospital will not accept responsibility for valuables. - Please leave all valuables, including medications, at home the day of surgery. If you are going home after surgery, a licensed jitney driver must drive you home. - NO public transportation without another adult if you receive anesthesia. - We recommend that an adult stay with you for 24 hours following discharge. - We also recommend that you do not drive, make important decision, drink alcoholic beverages, or take any drugs that were not prescribed by your health care provider for at least 24 hours after your discharge time. For Pediatric surgeries, we recommend two adults accompany the child home. Follow any additional instructions given to you from your surgeon. If you or anyone in your household have experienced Covid symptoms in the past week, please notify your surgeon or the nurse liaison at the phone number below for possible testing. Telephone instructions given to ____PT'S MARISOL and asked if any additional questions and then verbalized understanding. Patient advised to call surgeon office or pre surgery nurse liaison [phone] if any additional questions.
[2022-08-29 13:37] VITALS: BMI 29.0
--- NOTE | 2022-09-03 13:36 | WPDANESEPPF ---
Anes - Initial Pre Proc Eval Procedure: Operation Date: 09/04/22 10:15 Proposed Procedures p Cystoscopy, Urethral Dilatation - Jeff Goldberg MD Date/Time: 09/03/22 13:36 Surgeon: Jeff Goldberg MD Pre Op Diagnosis: gross hematuria Patient Data Age: 82 Gender: M Height: 1.68 m Weight: 81.65 kg Allergies Allergy/AdvReac Type Severity Reaction Status Date / Time No Known Allergies Allergy Verified 09/04/22 09:14 Home Medications Medication Instructions Recorded Confirmed Type [place] 3 Fish Oil 950 mg BYMOUTH HS 05/02/22 09/04/22 History allopurinol 100 mg tablet 200 mg PO DAILY 05/02/22 09/04/22 History clopidogrel 75 mg tablet 75 mg PO DAILY 05/02/22 09/04/22 History colchicine 0.6 mg tablet 0.6 mg PO DAILY 05/02/22 09/04/22 History geriatric multivitamin-min 1 tablet BYMOUTH DAILY 05/02/22 09/04/22 History losartan 25 mg tablet 25 mg PO DAILY 05/02/22 09/04/22 History rosuvastatin 10 mg tablet 10 mg PO HS 05/02/22 09/04/22 History vitamin B complex 1 tablet PO DAILY 05/02/22 09/04/22 History nifedipine 30 mg tablet,extended 30 mg PO BID #30 tabs 05/05/22 09/04/22 Rx release 24 hr (Procardia XL) aspirin 81 mg tablet,delayed 81 mg PO HS 08/29/22 09/04/22 History release (Adult Low Dose Aspirin) lutein 20 mg-zeaxanthin 4 mg 1 cap PO DAILY 08/29/22 09/04/22 History capsule Patient hx anesthesia problems: none Family hx anesthesia problems: none Results Review: All pre-operative results and documents have been reviewed as part of the pre-operative evaluation. 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 He lives at home with his and is independent in activities of daily living. 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 He has 2 sons and 1 daughter who are all healthy. He used to drink alcohol on occasion but has not done so in many years. Code status: Full code (patient states he would not want to be on a ventilator long-term or to have a tracheostomy or feeding tube.) Surrogate decision maker: Smoking status: Never smoker Second hand tobacco smoke exposure: Yes (at work) Alcohol intake: former Alcohol use details: On occasion in in moderation. Substance use: never Substance use type: does not use Lack of Transportation: No Lack of Food: Never True Current Housing: I Have Housing Concerned About Future Housing: No Difficulty Paying Gas/Electric Bills: No Difficulty Paying for Meds: No Currently Unemployed: No Education: High School Diploma/GED Difficulty w/ Childcare or Family Care: No Living arrangements: with family Spiritual care concerns: No Anes - Eval Final PreProcedure Day of Procedure 09/03/22 13:36 Patient weight: overweight Heart: regular rate and rhythm Lungs: clear to auscultation Airway: Mallampati scale class II Neurological: alert and oriented Last oral intake: >/= 8 hours ASA classification: III Emergent: no Anesthetic plan: proceed Anesthesia type and monitoring: general LMA and standard monitoring
--- NOTE | 2022-09-04 06:36 | WPDHPUPDATE1 ---
History and Physical Update Update Date/Time: 09/04/22 06:36 History and Physical has been reviewed, including an updated exam of the patient. There are NO changes in the patient's condition. Risks, benefits, and alternatives have been discussed and questions answered. Patient agrees to proceed with procedure.
[2022-09-04 08:41] VITALS: BP 132/57; PULSE 58; RESP 18; TEMP 36.8; O2SAT 96
[2022-09-04] MEDS: LACTATED RINGERS 1,000 ML 30 ML IV CONT (09:07)
[2022-09-04] MEDS: ceFAZolin 2 GM/D5W 50 ML 2 GM/50 ML BAG IVPB (10:58)
[2022-09-04] MEDS: LIDOCAINE HCL 2% GEL UROJET 10 ML PKG MUCOUS MEM (11:07)
--- NOTE | 2022-09-04 11:14 | W.PM.PROC2 ---
Procedure Note - Detailed Date of Procedure 09/04/22 Pre-op Diagnosis Bulbous urethral stricture Post-op Diagnosis Same Procedure Performed Cystoscopy with urethral dilatation Surgeon Jeff Goldberg MD Anesthesia MAC Description of Procedure patient is brought to the operative suite was prepped draped in routine sterile fashion while in dorsal lithotomy position. 2% xylocaine jelly was introduced intraurethrally and systemic sedation is administered per the anesthesia department. Attempted cystoscopy with a 19 F rigid cystoscope but he has a couple concentric, fairly wide caliber bulbous urethral strictures which preclude passage of the scope at this point. I dilated from 16 F to 26 F using Jovan sounds. Repeat cystoscopy showed minimal prostatic hyperplasia. The bladder, itself, was endoscopically normal without foreign body or neoplasm. The bladder was emptied the scope was removed. I opted not to place urethral catheter. Drains No Packing No Pathology None sent
[2022-09-04 11:18] VITALS: BP 100/44; PULSE 53; RESP 16; O2SAT 95
--- NOTE | 2022-09-04 11:21 | SUR.PREOP ---
0900 PT INFORMED OF SURGERY TIME DELAY
[2022-09-04 11:45] VITALS: BP 151/51; PULSE 50
[2022-09-04 12:15] VITALS: BP 153/59; PULSE 57
== END 2022-09-04 12:42 | disposition home or self-care (01) ==
PROVIDERS: PCP Internal Medicine; Visit Provider Urology
PROC: 0T7D8ZZ Dilation of Urethra, Via Natural or Artificial Opening Endoscopic (ICD-10-PCS; CPT 52281; principal; 2022-09-04 10:15)
DX: N35.912 Unspecified bulbous urethral stricture, male (principal); I25.10 Atherosclerotic heart disease of native coronary artery without angina pectoris; I10 Essential (primary) hypertension; E78.5 Hyperlipidemia, unspecified; M10.9 Gout, unspecified; I73.9 Peripheral vascular disease, unspecified; Z95.5 Presence of coronary angioplasty implant and graft; I69.312 Visuospatial deficit and spatial neglect following cerebral infarction; Z79.02 Long term (current) use of antithrombotics/antiplatelets; Z79.82 Long term (current) use of aspirin
CPT/HCPCS: 52281; J0690; J2704; J3010; J7120

== ENCOUNTER 2023-07-15 21:27 | Emergency (ER) | payer MEDICARE, SELFPAY ==
[2023-07-15] VITALS (7 sets, daily range): BP systolic 123–153; BP diastolic 49–57; PULSE 43–53; RESP 12–18; TEMP 36.4–37.2; O2SAT 93–97
--- NOTE | ~2023-07-15 | XR_ITS ---
EXAMINATION: XR forearm RT 2V DATE: 07/15/2023 21:49 INDICATION: Right forearm injury. TECHNIQUE: 2 views of right forearm were obtained. COMPARISON: None. FINDINGS: Bone alignment is normal. No fracture. There is mild osteoarthritis of the radiocarpal join t with a large subchondral cyst in distal radius. 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 Numerous foreign bodies overlie the forearm me asuring up to 5 mm. IMPRESSION: 1. Numerous foreign bodies overlying the forearm measuring up to 5 mm. Reviewed, dictated and finalized at location E.
--- NOTE | ~2023-07-15 | XR_ITS ---
EXAMINATION: XR hand RT 2V DATE: 07/15/2023 21:49 INDICATION: Right hand injury. TECHNIQUE: 2 views of right hand were obtained. COMPARISON: None. FINDINGS: Alignment is normal. No fracture. There is mild osteoarthritis of radiocarpal compartment w ith a large subchondral cyst in distal radius. 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 There is moderate osteoarthritis of second metaca rpophalangeal joint and mild osteoarthritis of some of the metacarpophalangeal joints and interphalan geal joints. Foreign bodies overlie the forearm measuring up to 5 mm. IMPRESSION: 1. Foreign bodies overlying the forearm. Reviewed, dictated and finalized at location E.
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
[2023-07-15] MEDS: SODIUM CHLORIDE 0.9% IV 1,000 ML 999 ML IV CONT (21:48)
[2023-07-15] MEDS: MORPHINE SULFATE (*CRX) 4 MG/ML INJ IV PUSH (21:49)
[2023-07-15] MEDS: ceFAZolin 2 GM/D5W 50 ML 2 GM/50 ML BAG IVPB (21:51)
[2023-07-15] MEDS: TETANUS,DIPHTHERIA,AC PERTUSSIS ADULT (0.5 ML) BOOSTRIX IM (21:52)
[2023-07-15 22:35] LABS: Basophils Percent Auto 0.4 % (0.2-1.2); Eosinophils Absolute Auto 0.1 K/mm3 (0-0.3); Eosinophils Percent Auto 1.4 % (0-4.4); Hematocrit 39.6 % (42.0-52.0); Hemoglobin 13.3 g/dL (14.0-18.0); Immature Granulocyte Absolute 0.02 K/mm3 (0.00-0.031); Immature Granulocyte Percent A 0.3 % (0-0.5); Lymphocytes Absolute Auto 2.05 K/mm3 (0.9-3.2); Lymphocytes Percent Auto 29.6 % (18.3-44.2); Mean Corpuscular HGB Conc 33.6 g/dl (32-36); Mean Corpuscular Volume 95.4 fl (80-100); Monocytes Absolute Auto 0.6 K/mm3 (0.1-0.6); Monocytes Percent Auto 8.4 % (2.6-8.5); Neutrophils Absolute Auto 4.2 K/mm3 (1.3-6.7); Neutrophils Percent Auto 59.9 % (45.5-73.1); Platelet Count Result 223 k/mm3 (150-375); Red Blood Count 4.15 M/mm3 (4.6-6.20); Red Cell Distribution Width 13.3 % (11.5-14.5); White Blood Count 6.9 K/mm3 (4.5-10.0)
[2023-07-16] VITALS: PULSE 54; RESP 16; O2SAT 98
[2023-07-16 00:01] VITALS: BP 157/55; PULSE 51; RESP 12; O2SAT 96
[2023-07-16 00:10] LABS: Alanine Aminotransferase 20 U/L (6-50); Albumin Level 4.2 g/dL (3.5-5.1); Alkaline Phosphatase 64 U/L (38-126); Anion Gap 7 mmol/L (4-12); Aspartate Amino Transferase 27 U/L (17-59); Bilirubin,Total 0.5 mg/dL (0.2-1.3); Blood Urea Nitrogen 20 mg/dL (9-20); Calcium 9.1 mg/dL (8.4-10.2); Carbon Dioxide 24 mmol/L (22-30); Chloride 108 mmol/L (98-107); Estimated CRCL calculation 38 ml/min; Estimated Glomerular Filt Rate 58; Glucose 143 mg/dL (65-110); Sodium 139 mmol/L (137-145)
[2023-07-16] MEDS: MORPHINE SULFATE (*CRX) 4 MG/ML INJ IV PUSH (00:45)
[2023-07-16 00:46] VITALS: BP 142/91; PULSE 54; RESP 12; O2SAT 97
== END 2023-07-16 01:01 | disposition short-term general hospital (02) ==
PROVIDERS: Emergency Provider Emergency Medicine; PCP Internal Medicine
DX: S51.811A Laceration without foreign body of right forearm, initial encounter (principal); V48.2XXA Person on outside of car injured in noncollision transport accident in nontraffic accident, initial encounter; Z79.82 Long term (current) use of aspirin; I10 Essential (primary) hypertension; I25.10 Atherosclerotic heart disease of native coronary artery without angina pectoris; E78.5 Hyperlipidemia, unspecified; Z96.653 Presence of artificial knee joint, bilateral; Z23 Encounter for immunization
CPT/HCPCS: 36415; 73090; 73120; 80053; 85025; 90471; 90715; 96361; 96374; 96375; 96376; 99285; J0690; J2270; J7030

== ENCOUNTER 2024-05-02 20:13 | Emergency (ER) | payer MEDICARE, SELFPAY ==
--- NOTE | 2024-05-02 20:37 | PC.NURSE ---
pt returned ed from imaging
[2024-05-02 20:38] VITALS: BP 156/56; PULSE 66; RESP 17; TEMP 36.2; O2SAT 97
[2024-05-03 01:10] VITALS: BP 179/66; PULSE 58; RESP 14; O2SAT 100
--- NOTE | 2024-05-03 01:34 | ED.GENADULT ---
HPI - General Adult General Chief complaint: Fall <Rick Staton MD - Last Filed: 05/03/24 02:00> Stated complaint: fall into metal flower bed edge with 3 lac + thinn <Rick Staton MD - Last Filed: 05/03/24 02:00> Time Seen by Provider: 05/02/24 23:53 <Rick Staton MD - Last Filed: 05/03/24 02:00> History of Present Illness HPI narrative: Patient 84-year-old gentleman presents emergency department with chief complaint of head injury and left thumb injury. Patient reports that he was trying to get the CT and tripped and landed on the ground patient reports no loss of conscious reports there is an abrasion to the forehead nose and also left thumb <Rick Staton MD - Last Filed: 05/03/24 02:00> Related Data Home medications: Home Medications ?Medication ?Instructions ?Recorded ?Confirmed ?Last Taken ?Type Mumford 3 Fish Oil 950 mg BYMOUTH HS 05/02/22 05/02/24 Unknown History allopurinol 100 mg tablet 200 mg PO DAILY 05/02/22 05/02/24 Unknown History clopidogrel 75 mg tablet 75 mg PO DAILY 05/02/22 05/02/24 Unknown History colchicine 0.6 mg tablet 0.6 mg PO DAILY 05/02/22 05/02/24 Unknown History geriatric multivitamin-min 1 tablet BYMOUTH DAILY 05/02/22 05/02/24 Unknown History losartan 25 mg tablet 25 mg PO DAILY 05/02/22 05/02/24 Unknown History rosuvastatin 10 mg tablet 10 mg PO HS 05/02/22 05/02/24 Unknown History vitamin B complex 1 tablet PO DAILY 05/02/22 05/02/24 Unknown History aspirin 81 mg tablet,delayed 81 mg PO HS 08/29/22 05/02/24 Unknown History release (Adult Low Dose Aspirin) lutein 20 mg-zeaxanthin 4 mg 1 cap PO DAILY 08/29/22 05/02/24 Unknown History capsule <Rikc Staton MD - Last Filed: 05/03/24 02:00> Allergies/adverse reactions: Allergies Allergy/AdvReac Type Severity Reaction Status Date / Time No Known Allergies Allergy Verified 05/02/24 20:17 <Rick Staton MD - Last Filed: 05/03/24 02:00> Review of Systems Review of Systems: A 10 system review of systems was completed on the patient and is negative except for what is stated in the HPI. Nursing and ancillary documentation was reviewed. 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 Hyperlipidemia Gout Essential hypertension Coronary artery disease <Rick Staton MD - Last Filed: 05/03/24 02:00> Surgical History Surgical History: Surgical History History of right cataract surgery History of bilateral knee replacement History of right common carotid artery stent placement History of heart artery stent X4 <Rick Staton MD - Last Filed: 05/03/24 02:00> Family History Family History: Family History Other Family history of cardiovascular disease <Rick Staton MD - Last Filed: 05/03/24 02:00> Social History Social History: Social History Social History: Patient has been for 54 years. He lives at home with his and is independent in activities of daily living. 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 He has 2 sons and 1 daughter who are all healthy. He used to drink alcohol on occasion but has not done so in many years. Code status: Full code (patient states he would not want to be on a ventilator long-term or to have a tracheostomy or feeding tube.) Surrogate decision maker: Smoking status: Never smoker Second hand tobacco smoke exposure: Yes (at work) Alcohol intake: former Alcohol use details: On occasion in in moderation. Substance use: never Substance use type: does not use Lack of Transportation: No Lack of Food: Never True Current Housing: I Have Housing Concerned About Future Housing: No Difficulty Paying Gas/Electric Bills: No Difficulty Paying for Meds: No Currently Unemployed: No Education: High School Diploma/GED Difficulty w/ Childcare or Family Care: No Living arrangements: with family Spiritual care concerns: No <Rick Staton MD - Last Filed: 05/03/24 02:00> Exam Narrative: GENERAL: Well-appearing, well-nourished, and in no acute distress. HEAD: Normocephalic, abrasion present to the forehead. EYES: PERRLA and EOMI. ENT: Nares clear, no rhinorrhea or epistaxis. Mucous membranes moist. Small abrasion/laceration to the nose NECK: Supple. CHEST: Clear to auscultation. No respiratory distress. HEART: Regular rate and rhythm. No murmur heard. Normal peripheral pulses. ABDOMEN: Soft, nontender, nondistended, normal active bowel sounds. EXTREMITIES: Normal range of motion. No edema. 1/2 cm laceration of the left thumb SKIN: Warm, dry, no rash. NEURO: No focal deficits. Alert and oriented x3. PSYCH: Normal mood and affect. <Rick Staton MD - Last Filed: 05/03/24 02:00> Course Vital Signs Vital signs: Vital Signs Temperature 36.2 C L 05/02/24 20:38 Pulse Rate 66 05/02/24 20:38 Respiratory Rate 17 05/02/24 20:38 Blood Pressure 156/56 H 05/02/24 20:38 Pulse Oximetry 97 05/02/24 20:38 Temperature 36.2 C L 05/02/24 20:38 Pulse Rate 58 L 05/03/24 01:10 Respiratory Rate 14 05/03/24 01:10 Blood Pressure 179/66 H 05/03/24 01:10 Pulse Oximetry 100 05/03/24 01:10 <Rick Staton MD - Last Filed: 05/03/24 02:00> Vital Signs Temperature 36.2 C L 05/02/24 20:38 Pulse Rate 66 05/02/24 20:38 Respiratory Rate 17 05/02/24 20:38 Blood Pressure 156/56 H 05/02/24 20:38 Pulse Oximetry 97 05/02/24 20:38 Temperature 36.2 C L 05/02/24 20:38 Pulse Rate 58 L 05/03/24 01:10 Respiratory Rate 14 05/03/24 01:10 Blood Pressure 179/66 H 05/03/24 01:10 Pulse Oximetry 100 05/03/24 01:10 <MARIS Maravilla Last Filed: 05/03/24 01:39> Procedures Laceration Laceration 1: Date: 05/03/24 <MARIS Maravilla Last Filed: 05/03/24 01:39> Time: 01:38 <MARIS Maravilla Last Filed: 05/03/24 01:39> Site: face <MARIS Maravilla Last Filed: 05/03/24 01:39> Size (cm): 0.25 <MARIS Maravilla Last Filed: 05/03/24 01:39> Description: irregular <MARIS Maravilla Last Filed: 05/03/24 01:39> Depth: simple, single layer <MARIS Maravilla Last Filed: 05/03/24 01:39> Pre-repair: wound explored and irrigated <MARIS Maravilla Last Filed: 05/03/24 01:39> ====== Skin Level ======: Skin layer closed with: dermabond <MARIS Maravilla Last Filed: 05/03/24 01:39> ====== Subcutaneous Layer ======: ====== Muscle Layer ======: ====== Tendon Layer ======: Laceration 2: Date: 05/03/24 <MARIS Maravilla Last Filed: 05/03/24 01:39> Time: 01:39 <MARIS Maravilla Filed: 05/03/24 01:39> Site: hand <Radha Greco PA-C Jose Ramon Last Filed: 05/03/24 01:39> Side (If applicable): left <MARIS Maravilla Filed: 05/03/24 01:39> Size (cm): 1.5 <Radha Greco PA-C Jose Ramon Last Filed: 05/03/24 01:39> Description: linear <MARIS Maravilla Last Filed: 05/03/24 01:39> Depth: simple, single layer <MARIS Maravilla Filed: 05/03/24 01:39> Local Anesthetic: lidocaine 1% <MARIS Maravilla Filed: 05/03/24 01:39> Amount of anesthesia used (mL): 2 <Radha Greco PA-C Jose Ramon Filed: 05/03/24 01:39> Pre-repair: wound explored, irrigated and irrigated extensively <Radha Greco PA-C Jose Ramon Last Filed: 05/03/24 01:39> ====== Skin Level ======: Skin layer closed with: nylon <MARIS Maravilla Filed: 05/03/24 01:39> Size (cm): 5-0 <MARIS Maravilla Last Filed: 05/03/24 01:39> Number of sutures: 2 <Radha Greco PA-C Jose Ramon Last Filed: 05/03/24 01:39> Technique: simple, interrupted <MARIS Maravilla Last Filed: 05/03/24 01:39> ====== Subcutaneous Layer ======: ====== Muscle Layer ======: ====== Tendon Layer ======: Medical Decision Making MDM Narrative Medical decision making narrative: Differential diagnosis includes head injury, cervical spine fracture CT head was negative CT C-spine showed no evidence of fracture <Rick Staton MD - Last Filed: 05/03/24 02:00> Vital Signs Vital Signs: Vital Signs Temperature 36.2 C L 05/02/24 20:38 Pulse Rate 66 05/02/24 20:38 Respiratory Rate 17 05/02/24 20:38 Blood Pressure 156/56 H 05/02/24 20:38 Pulse Oximetry 97 05/02/24 20:38 Temperature 36.2 C L 05/02/24 20:38 Pulse Rate 58 L 05/03/24 01:10 Respiratory Rate 14 05/03/24 01:10 Blood Pressure 179/66 H 05/03/24 01:10 Pulse Oximetry 100 05/03/24 01:10 <Rick Staton MD - Last Filed: 05/03/24 02:00> Vital Signs Temperature 36.2 C L 05/02/24 20:38 Pulse Rate 66 05/02/24 20:38 Respiratory Rate 17 05/02/24 20:38 Blood Pressure 156/56 H 05/02/24 20:38 Pulse Oximetry 97 05/02/24 20:38 Temperature 36.2 C L 05/02/24 20:38 Pulse Rate 58 L 05/03/24 01:10 Respiratory Rate 14 05/03/24 01:10 Blood Pressure 179/66 H 05/03/24 01:10 Pulse Oximetry 100 05/03/24 01:10 <Radha Greco PA-C - Last Filed: 05/03/24 01:39> Discharge Plan Discharge Clinical Impression: Laceration of left thumb, Abrasion of forehead, Laceration of nose <Rick Staton MD - Last Filed: 05/03/24 02:00> Patient Disposition: Home, Self-Care <Rick Staton MD - Last Filed: 05/03/24 02:00> Condition: Stable <Rick Staotn MD - Last Filed: 05/03/24 02:00> Instructions: Antibiotic Form, Laceration (ED), Head Injury (ED), Abrasion (ED) <Rick Staton MD - Last Filed: 05/03/24 02:00> Patient Language: Tajik <Rick Staton MD - Last Filed: 05/03/24 02:00> Prescriptions: No Action clopidogrel 75 mg tablet 75 mg PO DAILY allopurinol 100 mg tablet 200 mg PO DAILY losartan 25 mg tablet 25 mg PO DAILY colchicine 0.6 mg tablet 0.6 mg PO DAILY rosuvastatin 10 mg tablet 10 mg PO HS Mumford 3 Fish Oil 950 mg BYMOUTH HS geriatric multivitamin-min 1 tablet BYMOUTH DAILY vitamin B complex 1 tablet PO DAILY nifedipine [Procardia XL] 30 mg Tablet Extended Release 24hr 30 mg PO BID Qty: 30 0RF aspirin [Adult Low Dose Aspirin] 81 mg Tablet,Delayed Release (Dr/Ec) 81 mg PO HS lutein-zeaxanthin 20-4 mg Capsule 1 cap PO DAILY hydrocodone-acetaminophen 5-325 mg tablet 1 - 2 tablet PO Q6H PRN (Reason: pain) Qty: 12 0RF <Rick Staton MD - Last Filed: 05/03/24 02:00> Follow-up/Referrals: Sander,MD Noah [Primary Care Provider] - <Rick Staton MD - Last Filed: 05/03/24 02:00> Time of Disposition: 01:37 <Rick Staton MD - Last Filed: 05/03/24 02:00> 01:37 <Radha Greco PA-C - Last Filed: 05/03/24 01:39>
== END 2024-05-03 02:43 | disposition home or self-care (01) ==
PROVIDERS: Emergency Provider Emergency Medicine; PCP Internal Medicine
DX: S01.21XA Laceration without foreign body of nose, initial encounter (principal); S61.012A Laceration without foreign body of left thumb without damage to nail, initial encounter; S00.81XA Abrasion of other part of head, initial encounter; I73.9 Peripheral vascular disease, unspecified; I10 Essential (primary) hypertension; I25.10 Atherosclerotic heart disease of native coronary artery without angina pectoris; E78.5 Hyperlipidemia, unspecified; M10.9 Gout, unspecified; Z95.5 Presence of coronary angioplasty implant and graft; Z96.653 Presence of artificial knee joint, bilateral; Z85.828 Personal history of other malignant neoplasm of skin; Z98.41 Cataract extraction status, right eye; Z79.02 Long term (current) use of antithrombotics/antiplatelets; Z79.899 Other long term (current) drug therapy; Z79.82 Long term (current) use of aspirin; W01.0XXA Fall on same level from slipping, tripping and stumbling without subsequent striking against object, initial encounter
CPT/HCPCS: 12001; 12011; 70450; 72125; 99284